=== PATIENT | female | born 1970 | race Caucasian/White ===

== ENCOUNTER → 2020-08-25 08:18 | Outpatient (CLI) | payer BC, SELFPAY ==
[2020-08-26 16:35] LABS: SARS-CoV-2 RNA PCR Negative
== END ==
PROVIDERS: PCP Family Medicine; Visit Provider Family Medicine
DX: R07.0 Pain in throat (principal); Z20.822 Contact with and (suspected) exposure to COVID-19
CPT/HCPCS: C9803; U0003; U0005

== ENCOUNTER → 2020-09-18 00:56 | Outpatient (CLI) | payer BC, SELFPAY ==
[2020-09-19 21:31] LABS: SARS-CoV-2 RNA PCR Negative
== END ==
PROVIDERS: PCP Family Medicine; Visit Provider Nurse Practitioner Family
DX: Z20.822 Contact with and (suspected) exposure to COVID-19 (principal)
CPT/HCPCS: C9803; U0003; U0005

== ENCOUNTER 2023-07-13 09:44 | Emergency (ER) | payer BC, SELFPAY ==
--- NOTE | ~2023-07-13 | CT_ITS ---
EXAMINATION: CT abdomen pelvis wo con DATE: 07/13/2023 11:39 INDICATION: Groin pain. Back pain. TECHNIQUE: Computed tomography (CT) of the abdomen and pelvis was performed without intravenous contr ast. Automated exposure control and iterative reconstruction technique were employed. The dose-length product was 986.14 mGy-cm. COMPARISON: None. FINDINGS: The visualized portions of the lung bases demonstrate minimal atelectasis. No pleural effus ion. The heart size is normal. No pericardial effusion. There is a small sliding hiatal hernia. There is diffuse hepatic steatosis. There are changes of cholecystectomy. The spleen, pancreas, and adrena l glands are normal. There is cortical thinning of the kidneys. There is no urolithiasis. There is an intrauterine device in expected position. There are changes of appendectomy. There are no dilated lo ops of bowel. There are no pathologically enlarged lymph nodes. There is no free intraperitoneal flui d. There is mild thoracic and lumbar spondylosis. IMPRESSION: 1. Small sliding hiatal hernia. 2. Diffuse hepatic steatosis. Reviewed, dictated and finalized at location A.
[2023-07-13 09:49] VITALS: BP 184/99; PULSE 91; RESP 16; TEMP 37; O2SAT 99
[2023-07-13 10:13] VITALS: BP 140/96; PULSE 85; RESP 17; O2SAT 98
[2023-07-13 10:15] LABS: Basophils Absolute Auto 0.1 K/mm3 (0.0-0.1); Basophils Percent Auto 0.7 % (0.2-1.2); Eosinophils Absolute Auto 0.4 K/mm3 (0-0.3); Eosinophils Percent Auto 5.9 % (0-4.4); Hematocrit 42.3 % (37.0-47.0); Hemoglobin 14.4 g/dL (12.0-15.0); Immature Granulocyte Absolute 0.03 K/mm3 (0.00-0.031); Immature Granulocyte Percent A 0.4 % (0-0.5); Lymphocytes Absolute Auto 1.84 K/mm3 (0.9-3.2); Lymphocytes Percent Auto 26.5 % (18.3-44.2); Mean Corpuscular Hemoglobin 30.3 pg (26-34); Mean Corpuscular Volume 89.1 fl (80-100); Mean Platelet Volume 9.2 fl (7.4-10.4); Monocytes Absolute Auto 0.5 K/mm3 (0.1-0.6); Monocytes Percent Auto 6.8 % (2.6-8.5); Neutrophils Absolute Auto 4.1 K/mm3 (1.3-6.7); Neutrophils Percent Auto 59.7 % (45.5-73.1); Platelet Count Result 318 k/mm3 (150-375); Red Blood Count 4.75 M/mm3 (4.2-5.4); Red Cell Distribution Width 13.7 % (11.5-14.5); White Blood Count 6.9 K/mm3 (4.5-10.0)
[2023-07-13 10:21] LABS: Appearance Urine Clear (Clear); Bilirubin Urine Negative (Negative); Blood Urine Negative (Negative); Color Urine Yellow (Yellow); Glucose Urine UA Negative (Negative); Ketones Urine Negative (Negative); Leukocyte Esterase Ur Negative LEU/UL (Negative); Nitrate Urine Negative (Negative); Protein Urine Negative (Negative); Specific Grav Ur 1.018 (1.001-1.035); Urobilinogen Urine 0.2 mg/dL (<2.0); pH Urine 6.5 (5.0-9.0)
[2023-07-13 10:23] LABS: Add Urine Microscopic? NO
[2023-07-13 10:35] LABS: Alanine Aminotransferase 32 U/L (6-35); Albumin Level 4.7 g/dL (3.5-5.1); Alkaline Phosphatase 95 U/L (38-126); Anion Gap 7 mmol/L (4-12); Aspartate Amino Transferase 32 U/L (14-36); Bilirubin,Total 0.5 mg/dL (0.2-1.3); Blood Urea Nitrogen 14 mg/dL (7-17); Calcium 8.6 mg/dL (8.4-10.2); Carbon Dioxide 24 mmol/L (22-30); Chloride 108 mmol/L (98-107); Estimated CRCL calculation 79 ml/min; Estimated Glomerular Filt Rate > 60; Glucose 102 mg/dL (65-110); Lipase 161 U/L (23-300); Potassium 4.2 mmol/L (3.4-5.0); Sodium 139 mmol/L (137-145)
[2023-07-13 11:09] VITALS: BP 147/89; PULSE 84; RESP 16; O2SAT 100
--- NOTE | 2023-07-13 11:13 | ED.ABDPAIN ---
HPI - Abdominal Pain General Chief Complaint: Abdominal Pain Stated Complaint: abdominal pain Time Seen by Provider: 07/13/23 10:02 Source: patient Mode of arrival: ambulatory Limitations: no limitations History of Present Illness HPI narrative: Patient presents with abdominal pain. She notes it is in her low abdomen as well as low back and in groin for 2 week. She feels bloated. She thought it might be related to her IUD which was placed 2.5 years ago for heavy menstruation. History of endometriosis. She went to her ObGyn, Dr Ball's RN [place] and was told the IUD appeared to be in place in the correct location. She was prescribed a muscle relaxer methocarbamol which has not helped much. Also taking Excedrin and OTC pain patches. Described as a pressure and the pain is causing decreased PO intake. She had a transvaginal and transabdominal US done which did not fully visualize her left ovary. Pain is worse with movement, yet she also descrbes feeling like she has to move. Described as a stabbing. Not particularly located on the right or left side. MICH last night. LBM this morning without diarrhea, constipation or blood. No vaginal discharge. LMP prior to IUD being placed. Nausea without vomiting. No fever but chills. Her PCP is Hakeem. Related Data Home Medications Medication Instructions Recorded Confirmed albuterol sulfate 90 mcg/actuation 1 puff inhalation Q4H PRN 04/17/20 aerosol inhaler gabapentin 100 mg capsule 100 mg PO TID 04/17/20 medroxyprogesterone 5 mg tablet 5 mg PO DAILY 04/17/20 metronidazole 500 mg tablet 500 mg PO Q8H 04/17/20 omega-3 fatty acids-fish oil 360 1 cap PO DAILY 04/17/20 mg-1,200 mg capsule (Fish Oil) phentermine 37.5 mg capsule 37.5 mg PO DAILY 04/17/20 tramadol 50 mg tablet 50 mg PO Q6H PRN 04/17/20 Allergies Allergy/AdvReac Type Severity Reaction Status Date / Time Penicillins Allergy Unknown hives Verified 07/13/23 09:49 [facility] Past Medical History Medical History Endometriosis History of hiatal hernia IUD (intrauterine device) in place Surgical History Surgical History History of appendectomy History of cholecystectomy Exam Narrative: GENERAL: Well-appearing, well-nourished HEAD: Normocephalic, atraumatic. EYES: Non injected, non icteric ENT: Nares clear, no rhinorrhea or epistaxis. NECK: Supple. CHEST: Speaking in full sentences. No respiratory distress. HEART: Regular rate and rhythm. . ABDOMEN/BACK: Soft, nondistended. No CVA tenderness. No tenderness to palpation. Abdomen is without rigidity or guarding. Not peritoneal EXTREMITIES: Normal range of motion. No edema. SKIN: Warm, dry, no rash. NEURO: No focal deficits. Alert and oriented x3. PSYCH: Normal mood and affect. Course Vital Signs Vital signs: Vital Signs Temperature 98.6 F 07/13/23 09:49 Pulse Rate 91 07/13/23 09:49 Respiratory Rate 16 07/13/23 09:49 Blood Pressure 184/99 H 07/13/23 09:49 Pulse Oximetry 99 07/13/23 09:49 Oxygen Delivery Room Air 07/13/23 09:49 Temperature 98.6 F 07/13/23 09:49 Pulse Rate 89 07/13/23 12:38 Respiratory Rate 20 07/13/23 12:38 Blood Pressure 135/75 07/13/23 12:38 Pulse Oximetry 100 07/13/23 12:38 Oxygen Delivery Room Air 07/13/23 09:49 MDM - Abdominal Pain MDM Narrative Medical decision making narrative: This patient presents with abdominal pain or unclear etiology. In the ED she is afebrile with VS that show hypertension initially. Will give analgesia, Zofran, and obtain non contrast CT study since describes a component of renal colic with abdominal pain/back pain and groin pain. A CT scan was performed to evaluate for potential causes of the abdominal pain, however, neither the clinical exam nor the CT has identified an emergent etiology for the abdominal pain. Specifically, given the benign exam, the laboratory studies, and unremarkable CT, I
[2023-07-13] MEDS: SODIUM CHLORIDE 0.9% IV 1,000 ML 999 ML IV CONT (11:30)
[2023-07-13] MEDS: MORPHINE SULFATE (*CRX) 4 MG/ML INJ IV PUSH (11:31)
[2023-07-13] MEDS: ONDANSETRON INJ 4 MG/2 ML VIAL IV PUSH (11:31)
[2023-07-13] MEDS: PANTOPRAZOLE 40 MG TABLET PO (12:35)
[2023-07-13 12:38] VITALS: BP 135/75; PULSE 89; RESP 20; O2SAT 100
== END 2023-07-13 12:54 | disposition home or self-care (01) ==
PROVIDERS: Emergency Provider Student in an Organized Health Care Education/Training Program; PCP Family Medicine
DX: K44.9 Diaphragmatic hernia without obstruction or gangrene (principal); K76.0 Fatty (change of) liver, not elsewhere classified; N80.9 Endometriosis, unspecified; Z97.5 Presence of (intrauterine) contraceptive device; Z90.49 Acquired absence of other specified parts of digestive tract; Z79.899 Other long term (current) drug therapy
CPT/HCPCS: 36415; 74176; 80053; 81003; 81025; 83690; 85025; 96374; 96375; 99284; A9270; J2270; J2405; J7030

== ENCOUNTER 2023-10-23 18:28 | Emergency (ER) | payer BC, SELFPAY ==
--- NOTE | ~2023-10-23 | CT_ITS ---
Non-contrast Head CT History: Headache Technique: Axial non-contrast imaging of the brain was performed. Dose reduction technique was used on this scan by utilizing automated exposure control and iterative reconstruction technique. The dose -length product (DLP) was 605.33 mGy-cm. Findings: There is no evidence of intracranial hemorrhage, mass lesion, or acute infarct. Brain par enchyma appears normal. The ventricles and subarachnoid spaces are normal in size. The calvarium ap pears normal. The visualized paranasal sinuses and mastoid air cells are clear. Impression: No significant abnormality seen. Reviewed, dictated and finalized at location . Impression: No significant abnormality seen.
[2023-10-23 18:46] VITALS: BP 139/82; PULSE 93; RESP 16; TEMP 36.7; O2SAT 98
--- NOTE | 2023-10-24 00:15 | ED.HA ---
HPI - Headache General Chief Complaint: Headache Stated Complaint: headache for weeks Time Seen by Provider: 10/23/23 23:02 Source: patient and family Mode of arrival: ambulatory Limitations: no limitations History of Present Illness HPI Narrative: Patient is a 53-year-old female who presents to the ER with a 2 week long history of a headache. She reports she has had meningitis in the past. Patient currently describes her headache as starting in the back of her head and radiating to the front. She reports her head feels heavy and that she has neck and spine pain. patient reports reports she was seen in urgent care 2 weeks ago. They diagnosed her with a sinus infection and gave her antibiotics. Patient reports the antibiotics did not help and her headache has consistently been present. Patient denies any one-sided weakness numbness or tingling. She endorses vision changes but denies any spots or floaters in her vision. Patient denies any congestion, coughing, shortness of breath, or chest pain. Related Data Home Medications Medication Instructions Recorded Confirmed albuterol sulfate 90 mcg/actuation 1 puff inhalation Q4H PRN 04/17/20 aerosol inhaler gabapentin 100 mg capsule 100 mg PO TID 04/17/20 medroxyprogesterone 5 mg tablet 5 mg PO DAILY 04/17/20 metronidazole 500 mg tablet 500 mg PO Q8H 04/17/20 omega-3 fatty acids-fish oil 360 1 cap PO DAILY 04/17/20 mg-1,200 mg capsule (Fish Oil) phentermine 37.5 mg capsule 37.5 mg PO DAILY 04/17/20 tramadol 50 mg tablet 50 mg PO Q6H PRN 04/17/20 Allergies Allergy/AdvReac Type Severity Reaction Status Date / Time Penicillins Allergy Unknown hives Verified 10/23/23 18:29 Review of Systems Review of Systems: All systems reviewed & are unremarkable except as noted in HPI and below PMFSH Past Medical History Medical History Endometriosis History of hiatal hernia IUD (intrauterine device) in place Surgical History Surgical History History of appendectomy History of cholecystectomy Exam Narrative: GENERAL: Well appearing, well-nourished, non-toxic, in no acute distress. HEAD: Normocephalic, atraumatic. NECK: Supple. No adenopathy, no masses. RESPIRATORY: Airway patent, respirations nonlabored. Clear to auscultation bilaterally, no rales, rhonchi, wheezing. CARDIOVASCULAR: Regular rate and rhythm without murmurs, rubs, or gallops. Peripheral pulses 2+ and equal bilaterally. MUSCULOSKELETAL: Moves all extremities. Strength/ROM intact without gross deformities. SKIN: Warm, dry, normal color. No rashes. NEURO: A&O X3. Speech clear. Cranial nerves II-XII grossly intact. No ataxic movements. PSYCHIATRIC: Appropriate mood, but flat affect. Normal interaction. Course Vital Signs Vital signs: Vital Signs Temperature 36.7 C 10/23/23 18:46 Pulse Rate 93 10/23/23 18:46 Respiratory Rate 16 10/23/23 18:46 Blood Pressure 139/82 10/23/23 18:46 Pulse Oximetry 98 10/23/23 18:46 Temperature 36.7 C 10/23/23 18:46 Pulse Rate 93 10/23/23 18:46 Respiratory Rate 16 10/23/23 18:46 Blood Pressure 139/82 10/23/23 18:46 Pulse Oximetry 98 10/23/23 18:46 MDM - Headache MDM Narrative Medical decision making narrative: Patient is a 53-year-old female who presents to the ER with a 2 week long history of a headache. She reports she has had meningitis in the past. Patient currently describes her headache as starting in the back of her head and radiating to the front. She reports her head feels heavy and that she has neck and spine pain. patient reports reports she was seen in urgent care 2 weeks ago. They diagnosed her with a sinus infection and gave her antibiotics. Patient reports the antibiotics did not help and her headache has consistently been present. Patient denies any one-sided weakness numb
[2023-10-24] MEDS: diphenhydrAMINE HCl INJ 50 MG/ML VIAL 25 MG IV PUSH (00:25)
[2023-10-24] MEDS: SODIUM CHLORIDE 0.9% IV 1,000 ML 999 ML IV CONT (00:26)
[2023-10-24] MEDS: MORPHINE SULFATE (*CRX) 2 MG/ML INJ IV PUSH (00:26)
[2023-10-24] MEDS: METOCLOPRAMIDE HCL INJ 10 MG/2 ML VIAL IV PUSH (00:26)
[2023-10-24 01:31] LABS: Influenza A QL RT-PCR Negative (Negative); Influenza B QL RT-PCR Negative (Negative); RSV RNA, RT-PCR Negative (Negative); SARS-CoV-2 RNA PCR Negative (Negative)
[2023-10-24 02:30] VITALS: BP 110/68; PULSE 65; RESP 15; O2SAT 98
[2023-10-24] MEDS: KETOROLAC 15 MG/ML VIAL (*BKC) IV PUSH (02:50)
[2023-10-24] MEDS: MAGNESIUM SULF 2 GM/WATER 50ML 2 GM/50 ML BAG IVPB (02:51)
[2023-10-24] MEDS: dexAMETHasone SOD PHOS INJ 10 MG/ML 1 ML VIAL IV PUSH (02:51)
[2023-10-24 04:53] VITALS: BP 122/76; PULSE 72; RESP 15; O2SAT 100
== END 2023-10-24 04:54 | disposition home or self-care (01) ==
PROVIDERS: Emergency Provider Registered Nurse
DX: R51.9 Headache, unspecified (principal); Z20.822 Contact with and (suspected) exposure to COVID-19
CPT/HCPCS: 70450; 87637; 96361; 96365; 96366; 96375; 99284; J1100; J1200; J1885; J2270; J2765; J3475; J7030